=== PATIENT | female | born 1990 | race Caucasian/White ===

== ENCOUNTER 2017-01-23 18:40 | Inpatient (IN) | payer MEDICAID ==
[~2017-01-23] VITALS: Ht 157.5 cm; Wt 54.3 kg
[2017-01-23 19:44] LABS: BASOPHILS % (AUTO) 0.4 % (0.0-2.0); EOSINOPHILS % (AUTO) 0.1 % (1.0-6.0); HEMATOCRIT 47.1 % (36-46); HEMOGLOBIN 15.6 g/dL (12.0-16.0); LYMPHOCYTES # (AUTO) 1.8 K/uL (1.0-4.8); LYMPHOCYTES % (AUTO) 10.8 % (22.0-44.0); MEAN CORPUSCULAR HEMOGLOBIN 30.9 pg (26.0-34.0); MEAN CORPUSCULAR VOLUME 94 fL (80-100); MONOCYTES # (AUTO) 1.6 K/uL (0.1-1.0); MONOCYTES % (AUTO) 9.4 % (2.0-9.0); NEUTROPHILS # (AUTO) 13.3 K/uL (1.8-7.7); NEUTROPHILS % (AUTO) 79.3 % (40.0-70.0); PLATELET COUNT (AUTO) 313 K/uL (150-450); RED BLOOD CELL COUNT(AUTO) 5.04 MIL/uL (4.00-5.20); RED CELL DISTRIBUTION WIDTH 13.9 % (11.5-14.5); WHITE BLOOD COUNT (AUTO) 16.8 K/uL (4.5-11.0)
[2017-01-23 19:55] LABS: ANION GAP 18 mmol/L (8-16); CALCIUM, TOTAL 8.8 mg/dL (8.8-10.5); CARBON DIOXIDE 22 mmol/L (22-29); CHLORIDE 101 mmol/L (98-107); CREATININE 1.03 mg/dL (0.60-1.30); GLOMERULAR FILTR. RATE CALC > 60 mL/min (>60); POTASSIUM 3.4 mmol/L (3.5-5.1); SODIUM SERUM 141 mmol/L (136-145); UREA NITROGEN, BLOOD 8 mg/dL (7-18)
[2017-01-23 20:00] LABS: ALANINE AMINOTRANSFERASE 19 U/L (12-78); ALBUMIN 4.4 g/dL (3.4-5.0); ASPARTATE AMINOTRANSFERASE 19 U/L (15-37); BILIRUBIN,TOTAL 0.8 mg/dL (0.1-1.0); TOTAL PROTEIN, SERUM 8.4 g/dL (6.4-8.2)
[2017-01-23] MEDS ORDERED: POTASSIUM CHLORIDE 10% 40 MEQ/30 ML LIQUID UDCUP PO ONE (20:30)
[2017-01-23] MEDS ORDERED: HALOPERIDOL LACTATE 5 MG/ML VIAL IM ONE (21:00)
[2017-01-23] MEDS ORDERED: LORazepam 2 MG/ML VIAL IM ONE (21:00)
[2017-01-23] MEDS ORDERED: DiphenhydrAMINE HCL 50 MG/ML VIAL IM ONE (21:00)
[2017-01-23] MEDS ORDERED: ZOLPIDEM TARTRATE 10 MG TABLET PO PRN (21:15)
[2017-01-24 03:06] VITALS: BP 120/78
[2017-01-24] MEDS ORDERED: INFLUENZA VIRUS VACCINE QVS 2016-17 (3YR+)/PF 60 MCG/0.5 ML SYRINGE IM ONE (03:30)
[2017-01-24 08:30] VITALS: BP 116/69
[2017-01-24] MEDS: HALOPERIDOL 5 MG TABLET PO PRN (10:17)
[2017-01-24] MEDS: LORazepam 2 MG TABLET PO PRN (10:17)
[2017-01-24] MEDS: NICOTINE 14 MG/24 HOUR PATCH TD SCH (12:31)
[2017-01-24 16:10] VITALS: BP 119/79
[2017-01-24] MEDS: RisperiDONE 1 MG TABLET PO SCH (16:46)
[2017-01-25 08:30] VITALS: BP 132/84
[2017-01-25] MEDS: RisperiDONE 1 MG TABLET PO SCH ×2 (10:25→16:31)
[2017-01-25] MEDS: HALOPERIDOL 5 MG TABLET PO PRN (10:25)
[2017-01-25] MEDS: LORazepam 2 MG TABLET PO PRN (10:26)
[2017-01-25] MEDS: NICOTINE 14 MG/24 HOUR PATCH TD SCH (10:27)
[2017-01-25] MEDS: DIVALPROEX SODIUM 500 MG DR TABLET PO SCH (16:31)
[2017-01-25 16:58] VITALS: BP 119/85
[2017-01-26] MEDS: RisperiDONE 1 MG TABLET PO SCH ×2 (08:41→18:15)
[2017-01-26] MEDS: DIVALPROEX SODIUM 500 MG DR TABLET PO SCH ×2 (08:41→18:15)
[2017-01-26] MEDS: NICOTINE 14 MG/24 HOUR PATCH TD SCH (08:42)
[2017-01-26 09:00] VITALS: BP 126/80
[2017-01-26 18:52] VITALS: BP 131/84
[2017-01-26] MEDS ORDERED: DIVA250T4 PO (19:58)
[2017-01-26] MEDS ORDERED: RISP1TAB89 PO (19:59)
== END 2017-01-26 20:45 | disposition home or self-care (01) | DRG 751 ==
LOC: EMS 18:52 → 3EC 01-24 02:00
PROVIDERS: ADMIT Psychiatry & Neurology Psychiatry; ATTEND Psychiatry & Neurology Psychiatry
DX: F29 Unspecified psychosis not due to a substance or known physiological condition (principal); E87.6 Hypokalemia; F41.9 Anxiety disorder, unspecified; F12.10 Cannabis abuse, uncomplicated; D72.829 Elevated white blood cell count, unspecified; F19.10 Other psychoactive substance abuse, uncomplicated; F17.210 Nicotine dependence, cigarettes, uncomplicated; Z81.8 Family history of other mental and behavioral disorders; Z71.51 Drug abuse counseling and surveillance of drug abuser
CPT/HCPCS: 90471; 96372; 99285; G0480; J1200; J1630; J2060

== ENCOUNTER 2017-03-03 10:50 | Emergency (ER) | payer SELFPAY ==
[~2017-03-03] VITALS: Ht 160 cm; Wt 56.8 kg
[~2017-03-03 10:50] MED LIST: DIVA250T4 PO; RISP1TAB89 PO
[2017-03-03] MEDS ORDERED: ZOLP5 PO (11:16)
[2017-03-03 13:00] VITALS: BP 112/63
== END 2017-03-03 13:04 | disposition home or self-care (01) ==
LOC: EMS 10:53
DX: S00.93XA Contusion of unspecified part of head, initial encounter (principal); F17.210 Nicotine dependence, cigarettes, uncomplicated; Z02.89 Encounter for other administrative examinations; Y04.2XXA Assault by strike against or bumped into by another person, initial encounter; Y93.89 Activity, other specified; Y92.810 Car as the place of occurrence of the external cause; Y99.8 Other external cause status
CPT/HCPCS: 70450; 72125; 81025; 99284; 99406

== ENCOUNTER 2021-12-02 12:03 | Emergency (ER) | payer MEDICAID, OTHER ==
[~2021-12-02] VITALS: Ht 157.5 cm; Wt 59.1 kg
[~2021-12-02 12:03] MED LIST changes: +ZOLP-280 PO
[2021-12-02 12:34] VITALS: BP 111/70
[2021-12-02] MEDS ORDERED: LORazepam 1 MG TABLET PO ONE (14:30)
[2021-12-07] MEDS ORDERED: RISP1TAB89 PO (11:58)
== END 2021-12-02 14:28 | disposition home or self-care (01) ==
LOC: EMS 12:03
DX: F31.9 Bipolar disorder, unspecified (principal); F41.9 Anxiety disorder, unspecified; F17.210 Nicotine dependence, cigarettes, uncomplicated; Z79.899 Other long term (current) drug therapy
CPT/HCPCS: 84703; 99284; Z7502; Z7610

== ENCOUNTER 2021-12-06 12:45 | Emergency (ER) | payer OTHER ==
[~2021-12-06] VITALS: Ht 157.5 cm; Wt 59.1 kg
[2021-12-06 14:22] LABS: BASOPHILS % (AUTO) 0.5 % (0.0-2.0); EOSINOPHILS % (AUTO) 1.4 % (1.0-6.0); HEMOGLOBIN 15.9 g/dL (12.0-16.0); LYMPHOCYTES # (AUTO) 2.3 K/uL (1.0-4.8); LYMPHOCYTES % (AUTO) 24.5 % (22.0-44.0); MEAN CORPUSCULAR HEMOGLOBIN 31.4 pg (26.0-34.0); MEAN CORPUSCULAR HGB CONC 33.9 G/dL (31.0-37.0); MEAN CORPUSCULAR VOLUME 93 fL (80-100); MONOCYTES # (AUTO) 0.7 K/uL (0.1-1.0); MONOCYTES % (AUTO) 7.3 % (2.0-9.0); NEUTROPHILS # (AUTO) 6.2 K/uL (1.8-7.7); NEUTROPHILS % (AUTO) 66.3 % (40.0-70.0); PLATELET COUNT (AUTO) 327 K/uL (150-450); RED BLOOD CELL COUNT(AUTO) 5.07 MIL/uL (4.00-5.20); RED CELL DISTRIBUTION WIDTH 14.3 % (11.5-14.5)
[2021-12-06 14:36] LABS: ANION GAP 7 mmol/L (8-16); CALCIUM, TOTAL 9.2 mg/dL (8.8-10.5); CARBON DIOXIDE 28 mmol/L (22-29); CHLORIDE 102 mmol/L (98-107); CREATININE 0.67 mg/dL (0.60-1.30); GLOMERULAR FILTR. RATE CALC > 60 mL/min (>60); GLUCOSE,RANDOM 90 mg/dL (70-110); POTASSIUM 3.8 mmol/L (3.5-5.1); SODIUM SERUM 137 mmol/L (136-145); UREA NITROGEN, BLOOD 12 mg/dL (7-18)
[2021-12-06 14:48] LABS: ALANINE AMINOTRANSFERASE 34 U/L (12-78); ALBUMIN 3.8 g/dL (3.4-5.0); ALKALINE PHOSPHATASE 84 U/L (46-116); ASPARTATE AMINOTRANSFERASE 15 U/L (15-37); BILIRUBIN,TOTAL 0.3 mg/dL (0.1-1.0); HCG,QUANTITATIVE < 1 mIU/mL (0-6)
[2021-12-06 14:53] LABS: VALPROIC ACID < 3 mcg/mL (50-100)
[2021-12-06] MEDS ORDERED: RisperiDONE 1 MG TABLET PO ONE (15:00)
[2021-12-06] MEDS ORDERED: LORazepam 1 MG TABLET PO ONE (15:00)
[2021-12-06 15:17] LABS: COVID AG,FIA SOURCE NASOPHARYNGEAL
[2021-12-06] MEDS ORDERED: RISP1TAB89 PO (15:19)
[2021-12-06 15:31] VITALS: BP 116/75
[2021-12-06 15:40] LABS: AMPHET/METH SCREEN,URINE NEGATIVE (NEGATIVE); BARBITURATE SCREEN, URINE NEGATIVE (NEGATIVE); BENZODIAZEPINES SCREEN,URINE NEGATIVE (NEGATIVE); CANNABINOID SCREEN,URINE POSITIVE (NEGATIVE); COCAINE SCREEN,URINE NEGATIVE (NEGATIVE); METHADONE SCREEN, URINE NEGATIVE (NEGATIVE); OPIATE SCREEN,URINE NEGATIVE (NEGATIVE)
[2021-12-06 15:45] LABS: PHENCYCLIDINE SCREEN,URINE NEGATIVE (NEGATIVE)
[2021-12-07] MEDS ORDERED: RISP1TAB89 PO (11:58)
== END 2021-12-06 15:55 | disposition home or self-care (01) ==
LOC: EMS 12:51
DX: F25.0 Schizoaffective disorder, bipolar type (principal); F31.9 Bipolar disorder, unspecified; F41.9 Anxiety disorder, unspecified; F17.210 Nicotine dependence, cigarettes, uncomplicated; Z79.899 Other long term (current) drug therapy; Z20.822 Contact with and (suspected) exposure to COVID-19
CPT/HCPCS: 36415; 80053; 80164; 80307; 84702; 85025; 87426; 99284; C9803; G0480